=== PATIENT | male | born 1965 | race Caucasian/White ===

== ENCOUNTER → 2016-11-05 | Outpatient (CLI) | payer MEDICARE, MEDICAID ==
[~2016-11-05] MED LIST: ACET-62 PO; ALBU18HF2 IH; ASPI-1115 PO; ATOR20TA59 PO; CLOP75TA PO; CYAN500L3 PO; CYCL-375 PO; DIAZ5TAB4 PO; DIPH25CA84 PO; FLUT1DIS3 ORAL INH; FOLI1TAB15 PO; FURO40TA5 PO; GABA-338 PO; OMEG300C PO; OXCA150T17 PO; OXYC1TAB11 PO; PRAM0.5T3 PO; SOLI10TA5 PO; SPIR25TA4 PO
== END ==
LOC: LAB 11:25
PROVIDERS: ATTEND Internal Medicine Hematology & Oncology
DX: D64.9 Anemia, unspecified (principal); G71.9 Primary disorder of muscle, unspecified; M25.50 Pain in unspecified joint; R63.4 Abnormal weight loss
CPT/HCPCS: 36415; 82668